=== PATIENT | male | born 1965 ===

== ENCOUNTER 2021-07-12 06:38 | Observation (INO) | payer OTHER ==
--- NOTE | 2021-07-11 16:26 | Short Stay Summary ---
Short Stay Documentation Date of service: 07/12/21 Narrative H&P: Est. Pt referred by Primary Physician for cardiac evaluation No cardiac sx's PCP-Tom. Patient has mild lei - History Past Medical History: hyperlipidemia, other (depression, sinus bradycardia) Past Surgical History: No surgical history Social history: , no smoking, no alcohol abuse - Physical exam General appearance: no acute distress HEENT: Atraumatic, PERRLA Lungs: Clear to auscultation Heart: Normal S1, Normal S2 Gastrointestinal: normoactive bowel sounds Extremities: pulses intact, pulses symmetrical Neurological: Normal gait, Normal speech, Strength at 5/5 X4 ext - Brief post op/procedure progress note Date of procedure: 07/12/21 Pre-op diagnosis: Chest pain Post-op diagnosis: other (triple vessel disease) Anesthesia: local Estimated blood loss: minimal - Hospital course Hospital course: Patient underwent cardiac catheterization and found to have triple-vessel disease. Request to transfer to [facility] is pending. If unable to obtain bed for transfer today to [facility] will admit patient to telemetry - Disposition Condition at discharge: Good Short Stay Discharge Plan Activity: advance as tolerated Diet: low fat, low cholesterol, low salt Wound: keep clean and dry, per your surgeon's advice Follow up with: PRIMARY CARE, [Referring] - 7 Days
[2021-07-12] MEDS ORDERED: ASPIRIN EC 325 MG TAB PO ONE (07:03)
[2021-07-12 07:20] LABS: Basophils % (Auto) 0.4 % (0.0-1.8); Eosinophils # (Auto) 0.2 K/mm3 (0.0-0.4); Eosinophils % (Auto) 3.1 % (0.0-4.3); Hematocrit 45.5 % (35.5-45.6); Hemoglobin 14.8 gm/dl (11.8-15.2); Lymphocytes # (Auto) 1.7 K/mm3 (1.2-5.4); Lymphocytes % (Auto) 28.9 % (13.4-35.0); Mean Corpuscular HGB Conc 33 % (32-34); Mean Corpuscular Volume 95 fl (84-94); Monocytes # (Auto) 0.5 K/mm3 (0.0-0.8); Monocytes % (Auto) 8.9 % (0.0-7.3); Platelet Count 182 K/mm3 (140-440); Red Blood Count 4.78 M/mm3 (3.65-5.03); Red Cell Distribution Width 13.3 % (13.2-15.2)
[2021-07-12 07:31] LABS: INR 0.79 (0.87-1.13)
[2021-07-12 07:34] LABS: Blood Urea Nitrogen 11 mg/dL (9-20); Calcium 9.2 mg/dL (8.4-10.2); Hemolysis Index 59
[2021-07-12 07:43] LABS: BUN/Creatinine Ratio 16
[2021-07-12] MEDS ORDERED: SODIUM CHLORIDE 0.9% 500 ML 500 ML IV SCH (08:00)
[2021-07-12] MEDS ORDERED: HEPARIN/NS 5000 UNIT/500ML 1,000 ML IR ONE (08:09)
[2021-07-12] MEDS ORDERED: VERAPAMIL 5 MG/2 ML INJ ONE (08:10)
[2021-07-12] MEDS ORDERED: MIDAZOLAM 2 MG/2 ML INJ ONE (08:10)
[2021-07-12] MEDS ORDERED: HEPARIN 10,000 UNITS/10 ML VIAL ONE (08:10)
[2021-07-12] MEDS ORDERED: fentaNYL 100 MCG/2 ML INJ ONE (08:10)
[2021-07-12] MEDS ORDERED: NITROGLYCERIN SYRINGE 3 ML ONE (08:11)
[2021-07-12] MEDS ORDERED: LIDOCAINE (2%) 20 MG/1 ML VIAL 20 ML MDV INFILTRATI ONE ×3 (08:11→08:59)
[2021-07-12] MEDS ORDERED: fentaNYL 100 MCG/2 ML INJ IV ONE ×2 (08:49→08:56)
[2021-07-12] MEDS ORDERED: MIDAZOLAM 2 MG/2 ML INJ IV ONE ×2 (08:49→08:56)
[2021-07-12] MEDS ORDERED: HEPARIN 10,000 UNITS/10 ML VIAL ART-SHEATH ONE ×2 (08:50→09:01)
[2021-07-12] MEDS ORDERED: VERAPAMIL 5 MG/2 ML INJ ART-SHEATH ONE ×2 (08:50→09:00)
[2021-07-12] MEDS ORDERED: NITROGLYCERIN 600 MCG/3 ML SYRINGE ART-SHEATH ONE ×2 (08:50→09:00)
[2021-07-12] MEDS ORDERED: HEPARIN 2,000 UNIT in SODIUM CHLORIDE 0.9% 500 ML 1,000 ML IR ONE (08:51)
[2021-07-12] MEDS ORDERED: SODIUM CHLORIDE 0.9% 1000 ML 1,000 ML ONE (09:00)
[2021-07-12] MEDS ORDERED: HYDROcodone/ACETAMINOPHEN 5-325 MG TAB PO PRN ×2 (11:30→12:30)
[2021-07-12] MEDS ORDERED: traMADol 50 MG TAB PO PRN (11:30)
--- NOTE | 2021-07-12 12:28 | Electrocardiograph Report ---
[facility] Test Date: 2021-07-12 Test Time: 07:38:40 Pat Name: VIJAY GLOVER Department: Room: Gender: M Cap Machine Operator: MAYANK : 1965 Requested By: JOSÉ ANTONIO DUNBAR Order Number: [id number] Reading MD: José Antonio Dunbar Measurements Intervals [place] Rate: 47 P: 39 MI: 180 QRS: 76 QRSD: 96 T: 76 QT: 470 QTc: 418 Interpretive Statements Sinus bradycardia No previous ECG available for comparison Electronically Signed On 07-12-2021 12:27:48 EST by José Antonio Dunbar
[2021-07-12] MEDS ORDERED: ONDANSETRON 4 MG/2 ML INJ IV PRN (12:30)
[2021-07-12] MEDS ORDERED: ACETAMINOPHEN 325 MG TAB PO PRN (12:30)
--- NOTE | 2021-07-12 15:22 | Cardiac Catherization Report ---
DATE OF SERVICE: 07/12/2021 ORDERING PHYSICIAN: Dr. Stanislaw Keenan_. CLINICAL INFORMATION: This is a 55-year-old male, hyperlipidemia with severe coronary calcification on a calcium score with abnormal stress test, here for left heart cath. Left heart cath performed with moderate sedation started at 8:54, finished at 9:04, 15 minutes of moderate sedation was done. DESCRIPTION OF PROCEDURE: Procedure was done via the right radial artery, sterile technique and local anesthesia. A 6-Trinidadian radial sheath inserted. Left system engaged with JL3.5 catheter. Left main is large and patent. LAD ostial proximal has 99% lesion, has LUIS 2 flow into the LAD was a medium caliber vessel. Diagonal 1 has bifurcated lession _, has an ostial proximal 95% lesion. Upper branch is patent, lower branch has 80% lesion. Ramus, medium caliber vessel, diffuse disease proximally with a focal area of 80%. Circ is a large caliber vessel. Mid has an 80%. OM1, OM2 are patent after that. RCA is a small dominant vessel, proximal 100%, mid and distal has focal 95% lesion, goes into a small PDA. LV gram done in [place] and [facility] shows normal LV function. LVEDP 15 mmHg, LV is 105. Aortic is 100/54. No gradient across the aortic valve on pullback. The 5-Trinidadian catheters all taken over guidewire. A 6-Trinidadian radial sheath was discontinued. Radial band applied. No hematoma, no bleeding. SUMMARY: Severe triple vessel disease with left main patent, LAD LUIS 2 flow with ostial proximal 99%. Diagonal 1, proximal ostial 95%, ramus proximal 80%, circ mid 80% with OM1, OM2 patent. RCA proximal 100%, mid and distal 2 focal 95%, small PDA with normal LV function. The patient will be transferred to [place] for bypass surgery. Discussed in detail with the patient and the patient's family. TID: [id number] RECEIPT: [id number] PARESH/ADILIA/NEDRA SIMPSON
[2021-07-12 16:08] VITALS: BP 103/56
[2021-07-12] MEDS ORDERED: ESCITALOPRAM 10 MG TAB PO SCH (22:00)
[2021-07-12] MEDS ORDERED: GABAPENTIN 500 MG/10 ML ORAL LIQD PO SCH (22:00)
[2021-07-12] MEDS ORDERED: GABAPENTIN 300 MG CAP PO SCH (22:00)
[2021-07-12] MEDS ORDERED: PRAVASTATIN 80 MG TAB PO SCH (22:00)
== END 2021-07-12 16:45 | disposition critical access hospital (66) ==
LOC: CATHLABREC 06:38 → 4A 12:30
PROVIDERS: ADMIT Internal Medicine; ATTEND Internal Medicine
DX: I25.10 Atherosclerotic heart disease of native coronary artery without angina pectoris (principal); E78.5 Hyperlipidemia, unspecified; F32.A Depression, unspecified; R00.1 Bradycardia, unspecified; R94.39 Abnormal result of other cardiovascular function study; Z79.899 Other long term (current) drug therapy
CPT/HCPCS: 36415; 80048; 85025; 85610; 85730; 93005; 93458; C1894; G0378; J1644; J1815; J2250; J3010; J3490; J7030; J7040; Q0162; Q9967